=== PATIENT | male | born 1990 | race African-American/Black ===

== ENCOUNTER 2020-01-20 19:10 | Emergency (ER) | payer OTHER ==
[~2020-01-20] VITALS: Ht 180.3 cm; Wt 76.2 kg
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
[~2020-01-20 19:10] MED LIST: FIORICET 50-321 EACH PO; NOHOMEMEDICATIONS
[2020-01-20] MEDS ORDERED: BIKTARVY 50-201 EACH PO (19:45)
[2020-01-20 20:45] VITALS: BP 116/75
== END 2020-01-20 20:44 | disposition home or self-care (01) ==
LOC: ER 19:10
DX: S01.01XA Laceration without foreign body of scalp, initial encounter (principal); H57.89 Other specified disorders of eye and adnexa; Z88.1 Allergy status to other antibiotic agents; Z79.899 Other long term (current) drug therapy; Y04.2XXA Assault by strike against or bumped into by another person, initial encounter; Y93.89 Activity, other specified; Y92.89 Other specified places as the place of occurrence of the external cause; Y99.8 Other external cause status